=== PATIENT | female | born 1945 | race Caucasian/White ===

== ENCOUNTER 2022-07-24 11:39 | Day surgery (SDC) | payer MEDICARE, OTHER ==
[2022-07-20 12:23] LABS: BASOPHILS # (AUTO) 0.1 X10'3 (0-0.2); BASOPHILS % (AUTO) 0.9 % (0-1); EOSINOPHILS # (AUTO) 0.1 X10'3 (0-0.9); EOSINOPHILS % (AUTO) 1.2 % (0-6); HEMOGLOBIN 13.9 g/dl (12.0-16.0); MEAN CORPUSCULAR VOLUME 92.8 FL (78-98); RED CELL DISTRIBUTION WIDTH 14.1 % (11.5-14.5)
[2022-07-20 12:26] LABS: HEMATOCRIT 40.9 % (35.0-45.0); LYMPHOCYTES # (AUTO) 1.6 X10'3 (1.1-4.8); LYMPHOCYTES % (AUTO) 23.3 % (21-51); MEAN CORPUSCULAR HEMOGLOBIN 31.6 PG (27.0-31.0); MONOCYTES # (AUTO) 0.6 X10'3 (0-0.9); MONOCYTES % (AUTO) 8.2 % (2-12); NEUTROPHILS # (AUTO) 4.7 X10'3 (1.8-7.7); NEUTROPHILS % (AUTO) 66.4 % (42-75); PLATELET COUNT 244 X10'3 (140-440); RED BLOOD COUNT 4.41 X10'6 (4.20-5.60)
[2022-07-20 12:34] LABS: APTT 28 SECONDS (22-32)
[2022-07-20 12:37] LABS: ALBUMIN 4.1 G/DL (3.4-5.0); BLOOD UREA NITROGEN 9 MG/DL (7-18); BUN/CREATININE RATIO 9.8 (6.6-38.0); CALCIUM 9.2 MG/DL (8.5-10.1); CHLORIDE 100 MMOL/L (99-107); CHOL/HDL RATIO 2.1 (0.00-4.99); CHOLESTEROL 212 MG/DL (0-200); CREATININE 0.92 MG/DL (0.40-0.90); GLUCOSE 95 MG/DL (70-104); HDL CHOLESTEROL 101 MG/DL (35-60); LDL CHOLESTEROL 91 MG/DL (50-100); TOTAL CARBON DIOXIDE 27.9 MMOL/L (24-32); TRIGLYCERIDES 68 MG/DL (20-135); eGFR 59 ML/MIN
[2022-07-20 12:53] LABS: ANION GAP 6 (8-16); POTASSIUM 4.2 MMOL/L (3.5-5.1); SODIUM 134 MMOL/L (135-145)
[~2022-07-24] VITALS: Ht 154.9 cm; Wt 56.1 kg
[2022-07-24] VITALS (12 sets, daily range): BP systolic 98–173; BP diastolic 55–97
[~2022-07-24 11:39] MED LIST: ASPI-12 PO; CALC-499 PO; ESTR0.5T PO; MULT-620 PO; OLME40TA70 PO; PROG100C28 PO; SIMV-42 PO
[2022-07-24] MEDS ORDERED: LORazepam 0.5 MG tablet PO PRN (12:00)
[2022-07-24] MEDS ORDERED: diphenhydrAMINE 25mg capsule PO PRN (12:00)
[2022-07-24] MEDS ORDERED: normal saline 1,000 ML IV SCH (12:00)
[2022-07-24] MEDS ORDERED: CENESTIN PO (12:15)
[2022-07-24] MEDS ORDERED: MELO-102 PO (12:16)
[2022-07-24] MEDS ORDERED: AMLO2.5T2 PO (12:19)
[2022-07-24] MEDS ORDERED: NAPR220T67 PO (12:19)
[2022-07-24] MEDS ORDERED: heparin 1,000unit/ml 10ml vial 10 ML ONE (13:54)
[2022-07-24] MEDS ORDERED: fentaNYL/PF 50MCG/1 ML 2ML syringe ONE (13:54)
[2022-07-24] MEDS ORDERED: nitroGLYCERIN-Tridil 50MG/D5W 250 ML IV ONE (13:54)
[2022-07-24] MEDS ORDERED: LIDOcaine 1% (10mg/ml) 2ml vial ONE (13:54)
[2022-07-24] MEDS ORDERED: iohexol 350MG/ML 100ml bottle IV ONE (13:54)
[2022-07-24] MEDS ORDERED: verapamil 2.5 mg/ml inj IV ONE (13:54)
[2022-07-24] MEDS ORDERED: midazolam 1 mg/ML 2ml injection ONE (13:54)
[2022-07-24] MEDS ORDERED: LIDOcaine 1% 30ml preserv. free vial ONE (14:31)
[2022-07-24] MEDS ORDERED: metoprolol tartrate 1mg/ml inj IV ONE (14:44)
--- NOTE | 2022-07-24 17:08 | NUR ---
Notified Dr. Brock that patient's HR in 90-100's. MD aware of elevated HR. No new orders at this time.
[2022-07-31 15:28] LABS: ISTAT HGB ART 11.6 g/dl (12.0-16.0); ISTAT Hct ART 34 %PCV (35-45); ISTAT O2 SATURATION ARTERIAL 91 % (95-98); ISTAT SOURCE ART
== END 2022-07-24 18:00 | disposition home or self-care (01) ==
LOC: SSTAY O 11:39
PROVIDERS: ATTEND Student in an Organized Health Care Education/Training Program
DX: I25.10 Atherosclerotic heart disease of native coronary artery without angina pectoris (principal); E78.5 Hyperlipidemia, unspecified; I10 Essential (primary) hypertension; I07.1 Rheumatic tricuspid insufficiency; Z79.01 Long term (current) use of anticoagulants
CPT/HCPCS: 36415; 80048; 80061; 85025; 85610; 85730; 93005; 93460; 99152; 99153; A6258; C1751; C1769; C1894; J1644; J2250; J3010; J3490; J7030; Q0163; Q9967; 82803; 85014; A6402

== ENCOUNTER 2022-08-13 05:41 | Inpatient (IN) | payer MEDICARE, OTHER ==
[2022-08-09 15:11] LABS: BASOPHILS # (AUTO) 0.1 X10'3 (0-0.2); EOSINOPHILS # (AUTO) 0.2 X10'3 (0-0.9); EOSINOPHILS % (AUTO) 1.9 % (0-6); LYMPHOCYTES # (AUTO) 1.9 X10'3 (1.1-4.8); LYMPHOCYTES % (AUTO) 23.3 % (21-51); MEAN CORPUSCULAR HEMOGLOBIN 31.3 PG (27.0-31.0); MEAN CORPUSCULAR HGB CONC 33.6 g/dL (33.0-36.5); MEAN CORPUSCULAR VOLUME 93.2 FL (78-98); MEAN PLATELET VOLUME 8.9 FL (7.4-10.4); MONOCYTES # (AUTO) 0.6 X10'3 (0-0.9); MONOCYTES % (AUTO) 7.7 % (2-12); NEUTROPHILS # (AUTO) 5.4 X10'3 (1.8-7.7); NEUTROPHILS % (AUTO) 66.1 % (42-75); PRE OP HEMOGLOBIN 14.1 g/dL (12.0-16.0); PRE OP PLATELET COUNT 260 X10'3 (140-440); RED BLOOD COUNT 4.51 X10'6 (4.20-5.60); RED CELL DISTRIBUTION WIDTH 13.9 % (11.5-14.5)
[2022-08-09 15:18] LABS: PRE OP INR 1.1 INR; PRE OP PROTIME 10.9 SECONDS (9.0-12.0)
[2022-08-09 15:20] LABS: ALBUMIN/GLOBULIN RATIO 1.3 (1.1-1.5); ALKALINE PHOSPHATASE 47 IU/L (46-116); BLOOD UREA NITROGEN 14 MG/DL (7-18); BUN/CREATININE RATIO 16.5 (6.6-38.0); CALCIUM 9.7 MG/DL (8.5-10.1); CHLORIDE 97 MMOL/L (99-107); CREATININE 0.85 MG/DL (0.40-0.90); PRE OP ALT 20 U/L (30-65); PRE OP ANION GAP 9 (8-16); PRE OP AST 25 U/L (10-37); PRE OP BILIRUB, TOTAL 0.7 MG/DL (0.0-1.0); PRE OP GLUCOSE 91 MG/DL (70-104); PRE OP POTASSIUM 3.8 MMOL/L (3.4-5.1); PRE OP SODIUM 133 MMOL/L (135-145); TOTAL CARBON DIOXIDE 27.2 MMOL/L (24-32); TOTAL PROTEIN 7.2 G/DL (6.4-8.2); eGFR 65 ML/MIN
[2022-08-09 15:24] LABS: CLARITY,URINE SLIGHTLY CLOUDY (Clear); COLOR,URINE STRAW (Yellow); GLUCOSE, URINE NEGATIVE (Neg); KETONES,URINE NEGATIVE (Neg); LEUKOCYTE ESTERASE ,URINE NEGATIVE (Neg); NITRITES, URINE NEGATIVE (Neg); OCCULT BLOOD,URINE NEGATIVE (Neg); PH,URINE 6.5 (4.8-8.0); PROTEIN,URINE NEGATIVE (Neg); UROBILINOGEN,URINE 0.2 E.U/dL (0.2-1.0)
[2022-08-09 15:27] LABS: UA COLLECTION TYPE CLN CATCH MIDSTREAM
[2022-08-09 15:34] LABS: BACTERIA,URINE 2+ /HPF (Neg); RBC,URINE 0-2 /HPF (0-2); SQUAMOUS EPITHELIAL CELL,UR FEW /LPF (FEW); WBC,URINE 0-4 /HPF (0-4)
[2022-08-09 15:50] LABS: HEMOGLOBIN A1C 5.6 % (4.5-6.2)
[2022-08-13] VITALS (17 sets, daily range): BP systolic 94–159; BP diastolic 42–90
[~2022-08-13] VITALS: Ht 152.4 cm; Wt 61.3 kg
[~2022-08-13 05:41] MED LIST changes: -ASPI-12 PO; +BIO COMPLETE PO; +BUPIVAcaine 0.5% inj/PF 30 ML ONE; -CALC-499 PO; -ESTR0.5T PO; +ESTR1TAB19 PO; +Insulin Reg/NS 100units/100mL 100 ML IV SCH; +MELO-102 PO; +OLME20TA23 PO; -OLME40TA70 PO; +TURM500C4 PO; +ceFAZolin 1000mg inj ONE; +clindamycin-Cleocin 900mg/D5W 50 ML IV ONE; +dextrose 50%-water 50ml dispensing syringe IV PRN; +epiNEPHrine 1 mg/ml inj ONE; +famotidine 20mg tablet PO ONE; +metoprolol tartrate 12.5mg (1/2 tablet) PO ONE; +mupirocin 2% nasal ointment 1gm UD NS ONE; +ringers solution, lacted 1,000 ML IV SCH; +vancomycin/NS 1 GM in NS 250 ML IV ONE
--- NOTE | 2022-08-13 05:55 | NUR ---
PT PREPARED FOR SURGERY, 18 G IV STARTED WITHOUT DIFFICULTY, BLOOD SUGAR CHECKED 85. PT HAD MULTIPLE QUESTIONS ABOUT THE PROCEDURE. PT DID NOT READ THE INFORMATION PACKET BECAUSE SHE SAID "IGNORANCE IS BLISS" PTS LEFT LEG HAS VEIN MAPPING NICHOLE. RIGHT GROIN HAS AN OLD BRUISE, PT STATES IT IS FROM HER CATH PROCEDURE. METOPROLOL AND PEPCID GIVEN. PT PREPPED BY [employer] [facility]. BILATERAL PEDAL PULSES ARE PALPABLE MILD PEDAL EDEMA NOTED. BILATERAL RADIAL PULSES ARE PALPABLE. BLOOD BRACELET IS REAPPLIED.
[2022-08-13 06:41] LABS: ABG BASE EXCESS -1.8 mmol/L (-2.0-2.0); ABG PCO2 (T) 26.6 mmHg (32.0-45.0); ABG PO2 (T) 75.9 mmHg (75.0-100.0); ALLEN'S TEST POSITIVE; FCOHb 0.2 % (0.0-3.9); FMetHb 0.1 % (0.0-1.5); FO2Hb 95.7 % (94-97); TOTAL HEMOGLOBIN 14.3 G/dl (12.0-16.0)
[2022-08-13] MEDS: LORazepam 2 mg/ml vial IV ONE ×2 (07:09→08:02)
[2022-08-13] MEDS ORDERED: midazolam 1 mg/ML 2ml injection ONE (07:13)
[2022-08-13] MEDS ORDERED: fentaNYL /PF 50mcg/ml 5ml ampule ONE (07:14)
[2022-08-13] MEDS ORDERED: papaverine 30 mg/ml 2ml inj. IA ONE (07:30)
[2022-08-13] MEDS ORDERED: isoflurane 100ml inhalation liquid IH ONE (07:56)
[2022-08-13] MEDS ORDERED: DOPamine/D5W 400mg/250ml bag IV ONE (07:56)
[2022-08-13] MEDS ORDERED: nitroGLYCERIN in D5W 50mg/250ml (Tridil) infusion IV ONE (07:56)
[2022-08-13] MEDS ORDERED: DOBUTamine/D5W 500mg/250ml premix IV ONE (07:56)
[2022-08-13] MEDS ORDERED: D5W IV ONE (07:56)
[2022-08-13] MEDS ORDERED: NORepinephrine 8 MG in NS 250 ML BAG (32 mcg/ml) IV ONE (07:56)
[2022-08-13] MEDS ORDERED: protamine sulf. 10mg/ml inj. IV ONE (07:56)
[2022-08-13] MEDS ORDERED: MILRINONE LACTATE IV ONE (07:56)
[2022-08-13 08:31] LABS: ABG BASE EXCESS -4.5 mmol/L (-2.0-2.0); ABG HCO3 18.5 mmol/L (22.0-26.0); ABG OXYGEN SATURATION 99.8 % (94-97); ABG PCO2 28.4 mmHg (32.0-45.0); ABG PO2 373.9 mmHg (75.0-100.0); CL (ABG) 104 mmol/L (99-107); FCOHb 0.3 % (0.0-3.9); FMetHb 0.3 % (0.0-1.5); FO2Hb 99.2 % (94-97); GLUCOSE (ABG) 92 mg/dl (70-104); TOTAL HEMOGLOBIN 13.1 G/dl (12.0-16.0)
[2022-08-13 09:15] LABS: ACT @ 1.70 U 343 SEC (193-297); ACT @ 2.84 U 526 SEC (260-420); BASELINE ACT 153 SEC (101-148); PATIENT WEIGHT 54.0k KG
[2022-08-13] MEDS ORDERED: ipratropium/albuterol 3ml nebule IH PRN (10:15)
[2022-08-13 10:16] LABS: ABG BASE EXCESS VENOUS -2.2 mmol/L (-2.0 - 2.0); ABG PCO2 VENOUS 34.7 mmHg (38.0-51.0); ABG PO2 VENOUS 55.1 mmHg (25.0-35.0); CL (ABG) 102 mmol/L (99-107); FHHb VENOUS 11.1 %; FMetHb VENOUS 0.3 % (0.0 - 0.5); FO2Hb VENOUS 87.6 %; GLUCOSE (ABG) 114 mg/dl (70-104); IONIZED CA (ABG) 0.85 mmol/L (1.10-1.30); K (ABG) 3.6 mmol/L (3.5-5.1); TOTAL HEMOGLOBIN 7.8 G/dl (12.0-16.0)
[2022-08-13 10:23] LABS: ABG BASE EXCESS -2.1 mmol/L (-2.0-2.0); ABG HCO3 20.9 mmol/L (22.0-26.0); ABG OXYGEN SATURATION 99.9 % (94-97); ABG PCO2 28.6 mmHg (32.0-45.0); ABG PO2 484.6 mmHg (75.0-100.0); CL (ABG) 103 mmol/L (99-107); FCOHb 0.5 % (0.0-3.9); FMetHb 0.3 % (0.0-1.5); FO2Hb 99.1 % (94-97); GLUCOSE (ABG) 113 mg/dl (70-104); K (ABG) 3.8 mmol/L (3.5-5.1); TOTAL HEMOGLOBIN 7.8 G/dl (12.0-16.0)
[2022-08-13 10:58] LABS: ABG BASE EXCESS -2.5 mmol/L (-2.0-2.0); ABG HCO3 21.1 mmol/L (22.0-26.0); ABG OXYGEN SATURATION 99.8 % (94-97); ABG PCO2 31.3 mmHg (32.0-45.0); ABG PO2 372.1 mmHg (75.0-100.0); CL (ABG) 105 mmol/L (99-107); FCOHb 0.5 % (0.0-3.9); FMetHb 0.3 % (0.0-1.5); GLUCOSE (ABG) 135 mg/dl (70-104); IONIZED CA (ABG) 0.95 mmol/L (1.10-1.30); K (ABG) 3.9 mmol/L (3.5-5.1); TOTAL HEMOGLOBIN 7.7 G/dl (12.0-16.0)
[2022-08-13 11:19] LABS: ABG BASE EXCESS -4.7 mmol/L (-2.0-2.0); ABG HCO3 24.8 mmol/L (22.0-26.0); ABG OXYGEN SATURATION 99.8 % (94-97); CL (ABG) 105 mmol/L (99-107); FCOHb 0.6 % (0.0-3.9); FO2Hb 99.2 % (94-97); GLUCOSE (ABG) 168 mg/dl (70-104); IONIZED CA (ABG) 1.01 mmol/L (1.10-1.30); K (ABG) 4.2 mmol/L (3.5-5.1); TOTAL HEMOGLOBIN 7.7 G/dl (12.0-16.0)
[2022-08-13 11:35] LABS: ABG BASE EXCESS -2.3 mmol/L (-2.0-2.0); ABG HCO3 24.2 mmol/L (22.0-26.0); ABG OXYGEN SATURATION 99.7 % (94-97); ABG PCO2 50.8 mmHg (32.0-45.0); ABG PO2 406.3 mmHg (75.0-100.0); CL (ABG) 106 mmol/L (99-107); FCOHb 0.9 % (0.0-3.9); FMetHb 0.3 % (0.0-1.5); FO2Hb 98.5 % (94-97); GLUCOSE (ABG) 184 mg/dl (70-104); IONIZED CA (ABG) 0.98 mmol/L (1.10-1.30); K (ABG) 4.3 mmol/L (3.5-5.1); TOTAL HEMOGLOBIN 7.7 G/dl (12.0-16.0)
[2022-08-13] MEDS ORDERED: heparin 10,000 units/1 ML INJ ONE (12:00)
[2022-08-13] MEDS ORDERED: magnesium sulf 1 GM/2 ML ONE (12:00)
[2022-08-13] MEDS ORDERED: LIDOcaine 2% (20 mg/ml) 5ml cardiac syringe ONE (12:00)
[2022-08-13] MEDS ORDERED: potassium Cl 2 mEq/ml inj IV ONE (12:00)
[2022-08-13] MEDS ORDERED: phenylephrine 10mg/ml inj. -priapism dosing ONE ×2 (12:00→15:09)
[2022-08-13] MEDS ORDERED: mannitol 12.5gm/50mL VIAL IV ONE (12:00)
[2022-08-13] MEDS ORDERED: methylPREDNISolone sod succ 1000mg vial ONE (12:00)
[2022-08-13] MEDS ORDERED: albumin (human) 25% 100 ML IV solution IV ONE (12:00)
[2022-08-13] MEDS ORDERED: calcium chloride 100 MG/1 ML inj IV ONE (12:00)
[2022-08-13] MEDS ORDERED: sodium bicarbonate (8.4%) 1 mEq/ml syringe ONE (12:00)
[2022-08-13] MEDS ORDERED: aminocaproic acid 250 MG/1 ML inj. ONE (12:00)
[2022-08-13 12:08] LABS: ABG BASE EXCESS 2.1 mmol/L (-2.0-2.0); ABG HCO3 24.6 mmol/L (22.0-26.0); ABG OXYGEN SATURATION 99.7 % (94-97); ABG PCO2 29.2 mmHg (32.0-45.0); ABG PO2 405.8 mmHg (75.0-100.0); CL (ABG) 106 mmol/L (99-107); FCOHb 0.8 % (0.0-3.9); FMetHb 0.3 % (0.0-1.5); FO2Hb 98.6 % (94-97); GLUCOSE (ABG) 196 mg/dl (70-104); IONIZED CA (ABG) 0.91 mmol/L (1.10-1.30); K (ABG) 4.5 mmol/L (3.5-5.1); TOTAL HEMOGLOBIN 6.9 G/dl (12.0-16.0)
[2022-08-13] MEDS: ROPIVAcaine 0.2%/PF PUMP 545 ML MEDSTERN SCH ×2 (12:25→12:30)
[2022-08-13 12:32] LABS: ABG BASE EXCESS 0.5 mmol/L (-2.0-2.0); ABG HCO3 23.6 mmol/L (22.0-26.0); ABG OXYGEN SATURATION 99.8 % (94-97); ABG PCO2 31.1 mmHg (32.0-45.0); ABG PO2 307.6 mmHg (75.0-100.0); CL (ABG) 108 mmol/L (99-107); FMetHb 0.3 % (0.0-1.5); FO2Hb 98.5 % (94-97); GLUCOSE (ABG) 188 mg/dl (70-104); IONIZED CA (ABG) 0.92 mmol/L (1.10-1.30); K (ABG) 4.1 mmol/L (3.5-5.1); TOTAL HEMOGLOBIN 7.1 G/dl (12.0-16.0)
[2022-08-13] MEDS ORDERED: fentaNYL/PF 50MCG/1 ML 2ML syringe ONE (12:49)
[2022-08-13 13:25] LABS: ABG BASE EXCESS VENOUS -3.9 mmol/L (-2.0 - 2.0); ABG HCO3 VENOUS 21.9 mmol/L (21.0-28.0); ABG PCO2 VENOUS 43.2 mmHg (38.0-51.0); ABG PO2 VENOUS 62.9 mmHg (25.0-35.0); CL (ABG) 111 mmol/L (99-107); FCOHb VENOUS 0.4 % (0.0- 3.9); FHHb VENOUS 10.6 %; FMetHb VENOUS 0.3 % (0.0 - 0.5); FO2Hb VENOUS 88.7 %; GLUCOSE (ABG) 100 mg/dl (70-104); IONIZED CA (ABG) 1.18 mmol/L (1.10-1.30); K (ABG) 3.4 mmol/L (3.5-5.1); TOTAL HEMOGLOBIN 9.1 G/dl (12.0-16.0)
[2022-08-13 13:28] LABS: ACTIVATED CLOTTING TIME 116 SEC (101-148)
[2022-08-13 13:46] LABS: BASOPHILS % (AUTO) 0.3 % (0-1); EOSINOPHILS % (AUTO) 0.3 % (0-6); HEMATOCRIT 28.3 % (35.0-45.0); HEMOGLOBIN 9.5 g/dl (12.0-16.0); LYMPHOCYTES # (AUTO) 1.2 X10'3 (1.1-4.8); LYMPHOCYTES % (AUTO) 11.2 % (21-51); MEAN CORPUSCULAR HEMOGLOBIN 31.4 PG (27.0-31.0); MEAN CORPUSCULAR HGB CONC 33.6 g/dL (33.0-36.5); MEAN CORPUSCULAR VOLUME 93.6 FL (78-98); MEAN PLATELET VOLUME 8.2 FL (7.4-10.4); MONOCYTES # (AUTO) 0.4 X10'3 (0-0.9); MONOCYTES % (AUTO) 3.9 % (2-12); NEUTROPHILS # (AUTO) 9.2 X10'3 (1.8-7.7); NEUTROPHILS % (AUTO) 84.3 % (42-75); PLATELET COUNT 87 X10'3 (140-440); RED BLOOD COUNT 3.02 X10'6 (4.20-5.60); RED CELL DISTRIBUTION WIDTH 13.6 % (11.5-14.5); WHITE BLOOD COUNT 10.9 X10'3 (4.5-11.0)
[2022-08-13] MEDS ORDERED: Insulin Reg/NS 100units/100mL 100 ML IV SCH (14:10)
[2022-08-13] MEDS ORDERED: HYDROcodone/acetaminophen 10/325mg tab PO PRN (14:10)
[2022-08-13] MEDS ORDERED: niCARDipine-NS 40mg/200ml IVPB 200 ML IV PRN (14:10)
[2022-08-13] MEDS ORDERED: potassium Cl 40MEQ/270ML bag 250 ML IV PRN (14:10)
[2022-08-13] MEDS ORDERED: ondansetron/PF 4mg/2ml inj IV PRN (14:10)
[2022-08-13] MEDS ORDERED: DOBUTamine-DoBUTrex 500mg/D5W 250 ML IV PRN ×2 (14:10→14:47)
[2022-08-13] MEDS ORDERED: sodium chloride 0.45% 1,000 ML IV SCH (14:10)
[2022-08-13] MEDS ORDERED: potassium Cl 20 mEq SR tablet PO PRN (14:10)
[2022-08-13] MEDS ORDERED: normal saline 250ml IV soln 250 ML IV PRN (14:10)
[2022-08-13] MEDS ORDERED: dextrose 50%-water 50ml dispensing syringe IV PRN (14:10)
[2022-08-13] MEDS ORDERED: Neutra Phos packet PO PRN (14:10)
[2022-08-13] MEDS ORDERED: DOPamine 400mg/D5W 250ml 250 ML IV PRN ×2 (14:10→15:04)
[2022-08-13] MEDS ORDERED: milrinone (Primacor) 20mg/D5W 100 ML IV PRN (14:10)
[2022-08-13] MEDS ORDERED: bisacodyl 10mg suppository rectal RC PRN (14:10)
[2022-08-13] MEDS ORDERED: magnesium 4gm in 100ml NS 100 ML IV PRN (14:10)
[2022-08-13] MEDS ORDERED: mineral oil 133ml enema RC PRN (14:10)
[2022-08-13] MEDS ORDERED: morphine 2 MG/ML inj. syringe IV PRN (14:10)
[2022-08-13] MEDS ORDERED: morphine 4 MG/ML inj SYRINge IV PRN (14:10)
[2022-08-13] MEDS ORDERED: nitroGLYCERIN-Tridil 50MG/D5W 250 ML IV PRN (14:10)
[2022-08-13] MEDS ORDERED: magnesium citrate 296ml oral solution PO PRN (14:10)
[2022-08-13] MEDS ORDERED: metoclopramide 5 mg/ml inj IV PRN (14:10)
[2022-08-13] MEDS ORDERED: potassium Cl 40MEQ/1/2NS 520ml 520 ML IV PRN (14:10)
[2022-08-13] MEDS ORDERED: sodium phosphate inj. 15 MMOL in dextrose 5%-water 250 ML IV PRN (14:10)
[2022-08-13] MEDS ORDERED: sodium phosphate inj. 30 MMOL in dextrose 5%-water 250 ML IV PRN (14:10)
[2022-08-13] MEDS ORDERED: acetaminophen 325mg tablet PO PRN ×2 (14:10)
[2022-08-13] MEDS ORDERED: insulin glargine (Lantus) pen - multi-dose SQ PRN (14:10)
[2022-08-13] MEDS ORDERED: magnesium hydroxide 30ml (MOM) UD suspension PO PRN (14:10)
[2022-08-13] MEDS ORDERED: potassium CL 10mEq/100ml bag 100 ML IV PRN (14:10)
[2022-08-13 14:37] LABS: APTT 37 SECONDS (22-32)
--- NOTE | 2022-08-13 15:00 | NUR ---
Received to room , accompanied by MDs and surgical crew. Placed on ventilator, to telemetry monitor, arterial line and PA line pressure zeroed & monitored. Chest tubes to suction at 20 cm. Dubon cath to gravity drainage. Dressings are dry and intact. See assessment record. All vasoactive drugs are infusing via central line.
[2022-08-13 15:03] LABS: ABG BASE EXCESS -4.4 mmol/L (-2.0-2.0); ABG HCO3 20.6 mmol/L (22.0-26.0); ABG OXYGEN SATURATION 98.7 % (94-97); ABG PCO2 (T) 34.7 mmHg (32.0-45.0); ABG PO2 (T) 184.1 mmHg (75.0-100.0); FCOHb 0.2 % (0.0-3.9); FMetHb 0.6 % (0.0-1.5); FO2Hb 97.9 % (94-97); PATIENT TEMPERATURE 35.3; PEEP 5 cm H2O; RESPIRATORY RATE 12 b/min; TIDAL VOLUME 450 mL; TOTAL HEMOGLOBIN 10.6 G/dl (12.0-16.0)
[2022-08-13] MEDS ORDERED: propofol inj 20 ML IV ONE (15:09)
[2022-08-13] MEDS ORDERED: epiNEPHrine 1 mg/ml inj ONE (15:09)
[2022-08-13] MEDS ORDERED: rocuronium 10mg/ml inj IV ONE (15:09)
[2022-08-13] MEDS ORDERED: acetaminophen 1,000mg/100ml IV 100 ML IV ONE (15:09)
[2022-08-13] MEDS ORDERED: LIDOcaine 2% (20mg/ml) 5ml vial ONE (15:09)
[2022-08-13] MEDS ORDERED: albumin (Human) 5% 250ml 750 ML IV ONE (15:09)
[2022-08-13 15:11] LABS: ALANINE AMINOTRANSFERASE 19 U/L (12-78); ALBUMIN 3.1 G/DL (3.4-5.0); ALBUMIN/GLOBULIN RATIO 2.1 (1.1-1.5); ALKALINE PHOSPHATASE 22 IU/L (46-116); ANION GAP 10 (8-16); ASPARTATE AMINO TRANSFERASE 47 U/L (10-37); BILIRUBIN,TOTAL 0.8 MG/DL (0.1-1.0); BLOOD UREA NITROGEN 12 MG/DL (7-18); BUN/CREATININE RATIO 13.2 (6.6-38.0); CALCIUM 6.6 MG/DL (8.5-10.1); CHLORIDE 109 MMOL/L (99-107); CREATININE 0.91 MG/DL (0.40-0.90); GLUCOSE 74 MG/DL (70-104); MAGNESIUM 2.1 MG/DL (1.5-2.4); PHOSPHORUS 2.8 MG/DL (2.3-4.5); POTASSIUM 3.4 MMOL/L (3.5-5.1); SODIUM 141 MMOL/L (135-145); TOTAL CARBON DIOXIDE 22.4 MMOL/L (24-32); TOTAL PROTEIN 4.6 G/DL (6.4-8.2); eGFR 60 ML/MIN
[2022-08-13] MEDS: magnesium 2GM in 50ml NS 50 ML IV PRN ×2 (15:42→20:58)
[2022-08-13] MEDS: potassium Cl 20mEq/100mL bag 100 ML IV PRN ×4 (15:42→18:47)
[2022-08-13] MEDS: ceFAZolin/D5W- 1GM premix 50 ML IV SCH (16:20)
[2022-08-13] MEDS: albumin (Human) 5% 250ml 250 ML IV PRN ×2 (16:51→17:43)
--- NOTE | 2022-08-13 18:18 | NUR ---
Problems reprioritized. Patient report given, questions answered & plan of care reviewed with Alfredo GARCIAS.
--- NOTE | 2022-08-13 18:18 | NUR ---
Patient in room CICU 2008. I have received report from Alka and had the opportunity to ask questions and assume patient care.
--- NOTE | 2022-08-13 18:23 | NUR ---
MD at bedside. Reviewed plan of care for the night. Reviewed current hemodynamics and drips. Will extubate if meets parameters. If pt continues to be a little hypotensive and her SVR is low he would like some vasopressin started. Would like to turn down primacor now and wean off if able given her high CI and borderline hypotension.
[2022-08-13 20:27] LABS: BASOPHILS % (AUTO) 0.1 % (0-1); EOSINOPHILS % (AUTO) 0.1 % (0-6); HEMATOCRIT 24.7 % (35.0-45.0); HEMOGLOBIN 8.3 g/dl (12.0-16.0); LYMPHOCYTES # (AUTO) 0.5 X10'3 (1.1-4.8); MEAN CORPUSCULAR HEMOGLOBIN 31.1 PG (27.0-31.0); MEAN CORPUSCULAR HGB CONC 33.6 g/dL (33.0-36.5); MEAN CORPUSCULAR VOLUME 92.7 FL (78-98); MEAN PLATELET VOLUME 8.4 FL (7.4-10.4); MONOCYTES # (AUTO) 0.5 X10'3 (0-0.9); NEUTROPHILS # (AUTO) 8.7 X10'3 (1.8-7.7); NEUTROPHILS % (AUTO) 89.8 % (42-75); PLATELET COUNT 77 X10'3 (140-440); RED BLOOD COUNT 2.67 X10'6 (4.20-5.60); RED CELL DISTRIBUTION WIDTH 13.9 % (11.5-14.5); WHITE BLOOD COUNT 9.6 X10'3 (4.5-11.0)
[2022-08-13] MEDS: sennosides/docusate sodium tablet PO SCH (20:30)
[2022-08-13] MEDS: vancomycin/NS 1 GM ADD-VANTAGE 250 ML IV SCH (20:30)
[2022-08-13] MEDS: mupirocin 2% ointment 22GM NS SCH (20:30)
[2022-08-13] MEDS: atorvastatin 10mg tablet PO SCH (20:33)
[2022-08-13] MEDS: gabapentin 300mg capsule PO SCH (20:33)
[2022-08-13 20:39] LABS: ALBUMIN 3.8 G/DL (3.4-5.0); ANION GAP 11 (8-16); BLOOD UREA NITROGEN 12 MG/DL (7-18); BUN/CREATININE RATIO 12.9 (6.6-38.0); CALCIUM 7.1 MG/DL (8.5-10.1); CHLORIDE 110 MMOL/L (99-107); CREATININE 0.93 MG/DL (0.40-0.90); GLUCOSE 117 MG/DL (70-104); MAGNESIUM 2.4 MG/DL (1.5-2.4); PHOSPHORUS 1.4 MG/DL (2.3-4.5); POTASSIUM 4.5 MMOL/L (3.5-5.1); SODIUM 140 MMOL/L (135-145); TOTAL CARBON DIOXIDE 19.3 MMOL/L (24-32); eGFR 58 ML/MIN
[2022-08-13 20:51] LABS: ABG BASE EXCESS -7.3 mmol/L (-2.0-2.0); ABG HCO3 16.6 mmol/L (22.0-26.0); ABG OXYGEN SATURATION 97.2 % (94-97); ABG PO2 (T) 109.3 mmHg (75.0-100.0); FCOHb 0.3 % (0.0-3.9); FMetHb 0.6 % (0.0-1.5); FO2Hb 96.3 % (94-97); PATIENT TEMPERATURE 37.6; TOTAL HEMOGLOBIN 9.1 G/dl (12.0-16.0)
--- NOTE | 2022-08-13 22:25 | NUR ---
MD called to check on pt. He was told she was still intubated because she was very sleepy. Her hemodynamics have been good for hours now off all vasoactive drips. Bleeding minimal. Some pain which has been resolved with morphine twice, pain pumps still going at 10ml/hr each (what they were at upon my arrival). He was fine leaving her intubated untill fully awake. Upon returning to the room the RT was with the pt who was wide awake. Pt had already passed ABG parameters, passed extubation parameters and extubated at 2205 to 3LNC with no complications. Pt still a bit groggy but aware of situation and place. Re-orienting as needed. Hemodynamics done after extubation which were good.
[2022-08-14] VITALS (24 sets, daily range): BP systolic 95–139; BP diastolic 45–67
[2022-08-14] MEDS: ceFAZolin/D5W- 1GM premix 50 ML IV SCH ×4 (00:30→23:09)
[2022-08-14 02:40] LABS: BASOPHILS % (AUTO) 0.1 % (0-1); EOSINOPHILS % (AUTO) 0 % (0-6); HEMATOCRIT 26.1 % (35.0-45.0); HEMOGLOBIN 8.6 g/dl (12.0-16.0); LYMPHOCYTES # (AUTO) 0.8 X10'3 (1.1-4.8); LYMPHOCYTES % (AUTO) 6.1 % (21-51); MEAN CORPUSCULAR HGB CONC 33.1 g/dL (33.0-36.5); MEAN CORPUSCULAR VOLUME 93.7 FL (78-98); MONOCYTES # (AUTO) 0.7 X10'3 (0-0.9); MONOCYTES % (AUTO) 5.8 % (2-12); NEUTROPHILS # (AUTO) 10.9 X10'3 (1.8-7.7); PLATELET COUNT 81 X10'3 (140-440); RED BLOOD COUNT 2.79 X10'6 (4.20-5.60); RED CELL DISTRIBUTION WIDTH 13.7 % (11.5-14.5); WHITE BLOOD COUNT 12.5 X10'3 (4.5-11.0)
[2022-08-14 02:51] LABS: APTT 37 SECONDS (22-32)
[2022-08-14 03:01] LABS: ALANINE AMINOTRANSFERASE 27 U/L (12-78); ALBUMIN 3.8 G/DL (3.4-5.0); ALBUMIN/GLOBULIN RATIO 2.9 (1.1-1.5); ALKALINE PHOSPHATASE 19 IU/L (46-116); ANION GAP 11 (8-16); ASPARTATE AMINO TRANSFERASE 55 U/L (10-37); BILIRUBIN,TOTAL 0.6 MG/DL (0.1-1.0); BLOOD UREA NITROGEN 11 MG/DL (7-18); BUN/CREATININE RATIO 14.3 (6.6-38.0); CHLORIDE 109 MMOL/L (99-107); CREATININE 0.77 MG/DL (0.40-0.90); GLUCOSE 129 MG/DL (70-104); MAGNESIUM 2.8 MG/DL (1.5-2.4); PHOSPHORUS 3.6 MG/DL (2.3-4.5); SODIUM 140 MMOL/L (135-145); TOTAL CARBON DIOXIDE 20.5 MMOL/L (24-32); TOTAL PROTEIN 5.1 G/DL (6.4-8.2); eGFR 72 ML/MIN
[2022-08-14] MEDS: potassium Cl 20mEq/100mL bag 100 ML IV PRN ×2 (03:22→05:05)
--- NOTE | 2022-08-14 06:40 | NUR ---
Patient in room CICU 2008. I have received report from Alfredo GARCIAS and had the opportunity to ask questions and assume patient care.
[2022-08-14 06:54] LABS: ABG PCO2 78.1 mmHg (32.0-45.0)
[2022-08-14] MEDS ORDERED: MELOXICAM 15 MG TABLET PO SCH (08:00)
[2022-08-14] MEDS ORDERED: metoprolol tartrate 12.5mg (1/2 tablet) PO SCH (08:00)
[2022-08-14] MEDS ORDERED: aspirin 81mg tab.chew PO SCH (08:30)
[2022-08-14] MEDS: sennosides/docusate sodium tablet PO SCH ×2 (09:36→20:06)
[2022-08-14] MEDS: furosemide 40mg/4ml inj IV SCH ×3 (09:36→23:09)
[2022-08-14] MEDS: gabapentin 300mg capsule PO SCH ×3 (09:37→20:06)
[2022-08-14] MEDS: multivitamins, therapeutics tablet PO SCH (09:37)
[2022-08-14] MEDS: mupirocin 2% ointment 22GM NS SCH ×2 (09:38→20:07)
[2022-08-14] MEDS: progesterone, micronized 100mg capsule PO SCH (09:39)
[2022-08-14] MEDS: estradiol 1mg tablet PO SCH (09:39)
[2022-08-14] MEDS: vancomycin/NS 1 GM ADD-VANTAGE 250 ML IV SCH ×2 (09:39→20:07)
--- NOTE | 2022-08-14 12:01 | NUR ---
Nutrition consult: Pt POD #1 s/p CABG x 1, just extubated at 22:05 yesterday per EMR. Pt would benefit from nutrition therapy education once appropriate. Will continue to follow. Addendum: 08/14/22 at [address] Amended: Links added.
[2022-08-14] MEDS: lactobacillus rhamnosus 10,000 MMU CELLS/CAPSULE PO SCH ×2 (12:31→18:04)
[2022-08-14] MEDS: folic acid/vitamin B complex w/vitamin C 0.8mg tablet PO SCH (12:31)
[2022-08-14] MEDS: potassium Cl 20 mEq SR tablet PO SCH (18:04)
--- NOTE | 2022-08-14 18:13 | NUR ---
Problems reprioritized. Patient report given, questions answered & plan of care reviewed with Pennie GARCIAS.
[2022-08-14] MEDS: carVEDilol 3.125mg tablet PO SCH (20:06)
[2022-08-14] MEDS: atorvastatin 10mg tablet PO SCH (20:06)
[2022-08-14] MEDS: ferrous sulfate ER tablet 140 MG TABLET.ER PO SCH (20:07)
[2022-08-15] VITALS (23 sets, daily range): BP systolic 101–154; BP diastolic 36–74
[2022-08-15 02:42] LABS: BASOPHILS % (AUTO) 0.1 % (0-1); EOSINOPHILS % (AUTO) 0 % (0-6); HEMATOCRIT 27.7 % (35.0-45.0); HEMOGLOBIN 9.1 g/dl (12.0-16.0); LYMPHOCYTES # (AUTO) 1.2 X10'3 (1.1-4.8); LYMPHOCYTES % (AUTO) 7.6 % (21-51); MEAN CORPUSCULAR HEMOGLOBIN 30.7 PG (27.0-31.0); MEAN CORPUSCULAR HGB CONC 32.8 g/dL (33.0-36.5); MEAN CORPUSCULAR VOLUME 93.5 FL (78-98); MEAN PLATELET VOLUME 10.1 FL (7.4-10.4); MONOCYTES # (AUTO) 1.1 X10'3 (0-0.9); MONOCYTES % (AUTO) 6.9 % (2-12); NEUTROPHILS # (AUTO) 13.9 X10'3 (1.8-7.7); NEUTROPHILS % (AUTO) 85.4 % (42-75); PLATELET COUNT 80 X10'3 (140-440); RED BLOOD COUNT 2.96 X10'6 (4.20-5.60); RED CELL DISTRIBUTION WIDTH 14.2 % (11.5-14.5); WHITE BLOOD COUNT 16.3 X10'3 (4.5-11.0)
[2022-08-15 03:10] LABS: ALBUMIN 3.2 G/DL (3.4-5.0); ANION GAP 6 (8-16); BLOOD UREA NITROGEN 13 MG/DL (7-18); BUN/CREATININE RATIO 17.8 (6.6-38.0); CALCIUM 6.9 MG/DL (8.5-10.1); CHLORIDE 103 MMOL/L (99-107); CREATININE 0.73 MG/DL (0.40-0.90); GLUCOSE 128 MG/DL (70-104); MAGNESIUM 2.3 MG/DL (1.5-2.4); PHOSPHORUS 2.7 MG/DL (2.3-4.5); POTASSIUM 4.9 MMOL/L (3.5-5.1); SODIUM 132 MMOL/L (135-145); TOTAL CARBON DIOXIDE 23.1 MMOL/L (24-32); eGFR 77 ML/MIN
--- NOTE | 2022-08-15 06:46 | NUR ---
Problems reprioritized. Patient report given, questions answered & plan of care reviewed with Emilee GARCIAS.
[2022-08-15] MEDS: folic acid/vitamin B complex w/vitamin C 0.8mg tablet PO SCH (08:22)
[2022-08-15] MEDS: sennosides/docusate sodium tablet PO SCH ×2 (08:22→20:00)
[2022-08-15] MEDS: furosemide 40mg/4ml inj IV SCH ×3 (08:22→23:04)
[2022-08-15] MEDS: lactobacillus rhamnosus 10,000 MMU CELLS/CAPSULE PO SCH ×3 (08:22→17:48)
[2022-08-15] MEDS: gabapentin 300mg capsule PO SCH ×2 (08:23→13:18)
[2022-08-15] MEDS: pantoprazole 40mg Tablet.DR PO SCH (08:23)
[2022-08-15] MEDS: ferrous sulfate ER tablet 140 MG TABLET.ER PO SCH (08:23)
[2022-08-15] MEDS: potassium Cl 20 mEq SR tablet PO SCH (08:23)
[2022-08-15] MEDS: multivitamins, therapeutics tablet PO SCH (08:23)
[2022-08-15] MEDS: estradiol 1mg tablet PO SCH (08:24)
[2022-08-15] MEDS: progesterone, micronized 100mg capsule PO SCH (08:24)
[2022-08-15] MEDS: MELOXICAM 7.5 MG TABLET PO SCH (08:24)
[2022-08-15] MEDS: mupirocin 2% ointment 22GM NS SCH (08:24)
[2022-08-15] MEDS: carVEDilol 3.125mg tablet PO SCH (08:24)
[2022-08-15] MEDS ORDERED: potassium Cl 40MEQ/1/2NS 520ml 520 ML IV PRN (09:10)
[2022-08-15] MEDS ORDERED: potassium Cl 20 mEq SR tablet PO PRN ×2 (09:10)
[2022-08-15] MEDS ORDERED: potassium Cl 20mEq/100mL bag 100 ML IV PRN (09:10)
[2022-08-15] MEDS ORDERED: potassium CL 10mEq/100ml bag 100 ML IV PRN (09:10)
[2022-08-15] MEDS ORDERED: potassium Cl 40MEQ/270ML bag 250 ML IV PRN (09:10)
[2022-08-15] MEDS ORDERED: magnesium 4gm in 100ml NS 100 ML IV PRN (09:10)
[2022-08-15] MEDS ORDERED: magnesium 2GM in 50ml NS 50 ML IV PRN (09:10)
--- NOTE | 2022-08-15 10:12 | NUR ---
Dr. Rangel by to round on patient, removed chest tube #2, chest tube #1 remains he also d/c'd central line
[2022-08-15] MEDS: ROPIVAcaine 0.2%/PF PUMP 545 ML MEDSTERN SCH ×2 (13:03→13:04)
--- NOTE | 2022-08-15 14:41 | NUR ---
Nutrition consult: Pt POD #2 s/p CABG x 1 per EMR. Pt/SO seen by RD at bedside for written/verbal high protein/HH diet eds w/ RD contact information provided. Pt 0-25% initial heart healthy meals reports no appetite post-op w/ no food preferences outside liking chocolate during RD visit. Pt is agreeable to Ensure Plus High Protein TIDWM for protein/kcal needs; PA notified pending verification in EMR. RD encouraged pt to make food preferences known regardless of heart healthy diet restriction in interim given poor intake/no appetite post-op. RD encouraged pt/SO to contact dietitian's office if further nutrition questions/concerns. Addendum: 08/15/22 at [address] Amended: Links added.
[2022-08-15] MEDS: atorvastatin 10mg tablet PO SCH (20:15)
[2022-08-15] MEDS: carvedilol 6.25mg tablet PO SCH (20:15)
[2022-08-15] MEDS: FERROUS SULFATE 142 MG TABLET.ER (45mg elemental) PO SCH (20:15)
[2022-08-15] MEDS: magnesium Cl slow-release 64mg tablet PO SCH (20:15)
[2022-08-16 02:00] VITALS: BP 119/62
--- NOTE | 2022-08-16 06:46 | NUR ---
Patient in room PCU 3021. I have received report from Emilee GARCIAS and had the opportunity to ask questions and assume patient care. Pt is laying semi fowlers in bed watching TV. Pt on 2l NC. No s/s of distress. Pt has CT to R side. CT to wall suction. Atrium upright and intact, no s/s of leak, approiate suction applied. Pt denies c/o pain with CT. BLL, call light within reach, frequently used items in reach, frequent rounding, oil and gas superintendent socks on, will continue to monitor.
[2022-08-16 07:06] LABS: BASOPHILS # (AUTO) 0.1 X10'3 (0-0.2); BASOPHILS % (AUTO) 0.4 % (0-1); EOSINOPHILS # (AUTO) 0.2 X10'3 (0-0.9); EOSINOPHILS % (AUTO) 1.4 % (0-6); HEMATOCRIT 30.9 % (35.0-45.0); HEMOGLOBIN 10.5 g/dl (12.0-16.0); LYMPHOCYTES # (AUTO) 2.3 X10'3 (1.1-4.8); LYMPHOCYTES % (AUTO) 15.5 % (21-51); MEAN CORPUSCULAR HEMOGLOBIN 31.6 PG (27.0-31.0); MEAN CORPUSCULAR HGB CONC 33.9 g/dL (33.0-36.5); MEAN CORPUSCULAR VOLUME 93.1 FL (78-98); MONOCYTES # (AUTO) 1.1 X10'3 (0-0.9); MONOCYTES % (AUTO) 7.2 % (2-12); NEUTROPHILS # (AUTO) 11.2 X10'3 (1.8-7.7); NEUTROPHILS % (AUTO) 75.5 % (42-75); PLATELET COUNT 92 X10'3 (140-440); RED BLOOD COUNT 3.32 X10'6 (4.20-5.60); RED CELL DISTRIBUTION WIDTH 14.1 % (11.5-14.5); WHITE BLOOD COUNT 14.8 X10'3 (4.5-11.0)
[2022-08-16 07:17] LABS: ANION GAP 6 (8-16); BLOOD UREA NITROGEN 10 MG/DL (7-18); BUN/CREATININE RATIO 14.5 (6.6-38.0); CALCIUM 6.9 MG/DL (8.5-10.1); CHLORIDE 99 MMOL/L (99-107); CREATININE 0.69 MG/DL (0.40-0.90); GLUCOSE 109 MG/DL (70-104); POTASSIUM 4.2 MMOL/L (3.5-5.1); SODIUM 130 MMOL/L (135-145); TOTAL CARBON DIOXIDE 24.9 MMOL/L (24-32); eGFR 82 ML/MIN
[2022-08-16] MEDS: LACTOSE-REDUCED FOOD 237ML LIQUID PO SCH ×3 (08:00→18:00)
[2022-08-16] MEDS: folic acid/vitamin B complex w/vitamin C 0.8mg tablet PO SCH (08:34)
[2022-08-16] MEDS: magnesium Cl slow-release 64mg tablet PO SCH ×2 (08:34→21:30)
[2022-08-16] MEDS: FERROUS SULFATE 142 MG TABLET.ER (45mg elemental) PO SCH ×2 (08:35→20:00)
[2022-08-16] MEDS: carvedilol 6.25mg tablet PO SCH ×2 (08:35→21:37)
[2022-08-16] MEDS: multivitamins, therapeutics tablet PO SCH (08:35)
[2022-08-16] MEDS: MELOXICAM 7.5 MG TABLET PO SCH (08:35)
[2022-08-16] MEDS: pantoprazole 40mg Tablet.DR PO SCH (08:35)
[2022-08-16] MEDS: sennosides/docusate sodium tablet PO SCH ×2 (08:36→21:30)
[2022-08-16] MEDS: progesterone, micronized 100mg capsule PO SCH (08:36)
[2022-08-16] MEDS: lactobacillus rhamnosus 10,000 MMU CELLS/CAPSULE PO SCH ×3 (08:36→17:30)
[2022-08-16] MEDS: estradiol 1mg tablet PO SCH (08:36)
[2022-08-16] MEDS: furosemide 40mg/4ml inj IV SCH (08:37)
[2022-08-16 11:30] VITALS: BP 139/78
[2022-08-16] MEDS ORDERED: carvedilol 6.25mg tablet PO ONE (16:00)
--- NOTE | 2022-08-16 19:05 | NUR ---
Problems reprioritized. Patient report given, questions answered & plan of care reviewed with Tello GARCIAS.
[2022-08-16] MEDS: enoxaparin 30mg/0.3ml syringe SUBCUT SCH (21:29)
[2022-08-16] MEDS: atorvastatin 10mg tablet PO SCH (21:30)
[2022-08-16] MEDS: furosemide 20MG tablet PO SCH (21:30)
[2022-08-16] MEDS: hyDRALAzine 10mg tablet PO SCH (21:34)
[2022-08-16 22:00] VITALS: BP 162/90
[2022-08-17] MEDS: hyDRALAzine 10mg tablet PO SCH (02:00)
[2022-08-17 06:00] VITALS: BP 170/80
[2022-08-17 07:06] LABS: BASOPHILS % (AUTO) 0.3 % (0-1); EOSINOPHILS # (AUTO) 0.3 X10'3 (0-0.9); EOSINOPHILS % (AUTO) 2.3 % (0-6); HEMATOCRIT 33.8 % (35.0-45.0); HEMOGLOBIN 11.2 g/dl (12.0-16.0); LYMPHOCYTES # (AUTO) 1.9 X10'3 (1.1-4.8); LYMPHOCYTES % (AUTO) 13.8 % (21-51); MEAN CORPUSCULAR VOLUME 93.8 FL (78-98); MEAN PLATELET VOLUME 9.7 FL (7.4-10.4); MONOCYTES # (AUTO) 1.2 X10'3 (0-0.9); MONOCYTES % (AUTO) 8.9 % (2-12); NEUTROPHILS # (AUTO) 10.5 X10'3 (1.8-7.7); NEUTROPHILS % (AUTO) 74.7 % (42-75); PLATELET COUNT 110 X10'3 (140-440); RED CELL DISTRIBUTION WIDTH 13.6 % (11.5-14.5)
[2022-08-17 07:22] LABS: ANION GAP 7 (8-16); BLOOD UREA NITROGEN 8 MG/DL (7-18); BUN/CREATININE RATIO 13.8 (6.6-38.0); CALCIUM 7.1 MG/DL (8.5-10.1); CHLORIDE 92 MMOL/L (99-107); CREATININE 0.58 MG/DL (0.40-0.90); GLUCOSE 113 MG/DL (70-104); POTASSIUM 3.5 MMOL/L (3.5-5.1); SODIUM 124 MMOL/L (135-145); TOTAL CARBON DIOXIDE 24.9 MMOL/L (24-32); eGFR > 90 ML/MIN
[2022-08-17] MEDS: LACTOSE-REDUCED FOOD 237ML LIQUID PO SCH ×3 (08:00→18:00)
[2022-08-17] MEDS: progesterone, micronized 100mg capsule PO SCH (08:40)
[2022-08-17] MEDS: magnesium Cl slow-release 64mg tablet PO SCH ×2 (08:40→19:38)
[2022-08-17] MEDS: multivitamins, therapeutics tablet PO SCH (08:40)
[2022-08-17] MEDS: folic acid/vitamin B complex w/vitamin C 0.8mg tablet PO SCH (08:40)
[2022-08-17] MEDS: furosemide 20MG tablet PO SCH ×2 (08:40→19:39)
[2022-08-17] MEDS: estradiol 1mg tablet PO SCH (08:40)
[2022-08-17] MEDS: carvedilol 6.25mg tablet PO SCH ×2 (08:41→19:39)
[2022-08-17] MEDS: FERROUS SULFATE 142 MG TABLET.ER (45mg elemental) PO SCH ×2 (08:41→19:38)
[2022-08-17] MEDS: pantoprazole 40mg Tablet.DR PO SCH (08:41)
[2022-08-17] MEDS: lactobacillus rhamnosus 10,000 MMU CELLS/CAPSULE PO SCH ×3 (08:42→17:56)
[2022-08-17] MEDS: HYDROcodone/acetaminophen 10/325mg tab PO PRN ×3 (08:42→19:36)
[2022-08-17] MEDS: sennosides/docusate sodium tablet PO SCH ×2 (08:42→19:38)
[2022-08-17] MEDS: MELOXICAM 7.5 MG TABLET PO SCH (08:42)
[2022-08-17] MEDS ORDERED: hydrALAZINE 20mg/ml inj. IV PRN (08:55)
[2022-08-17] MEDS: losartan 50mg tablet PO SCH (09:15)
[2022-08-17] MEDS ORDERED: morphine 4 MG/ML inj SYRINge ONE (09:41)
[2022-08-17] MEDS ORDERED: ketorolac tromethamine 15mg/ml inj. IM SCH (10:10)
[2022-08-17] MEDS ORDERED: pantoprazole 40mg Tablet.DR PO SCH (10:15)
[2022-08-17] MEDS ORDERED: ASPI-1071 PO ×2 (10:34)
[2022-08-17] MEDS ORDERED: HYDR-3972 PO (10:34)
[2022-08-17] MEDS ORDERED: CLOP75TA34 PO (10:34)
[2022-08-17] MEDS ORDERED: CARV6.253 PO (10:34)
[2022-08-17 11:00] VITALS: BP 145/80
[2022-08-17] MEDS: ROPIVAcaine 0.2%/PF PUMP 545 ML MEDSTERN SCH ×2 (12:25→12:30)
[2022-08-17] MEDS: ketorolac tromethamine 15mg/ml inj. IV SCH ×2 (14:31→21:35)
[2022-08-17 15:00] VITALS: BP 116/67
[2022-08-17 18:00] VITALS: BP 174/86
--- NOTE | 2022-08-17 18:37 | NUR ---
Patient in room PCU 3021. I have received report from Yennifer FLOWER and had the opportunity to ask questions and assume patient care.
[2022-08-17] MEDS: allopurinol 100mg tablet PO SCH (19:38)
[2022-08-17] MEDS: enoxaparin 30mg/0.3ml syringe SUBCUT SCH (19:42)
[2022-08-17] MEDS: atorvastatin 10mg tablet PO SCH (21:36)
[2022-08-17 22:00] VITALS: BP 135/65
--- NOTE | 2022-08-17 22:51 | NUR ---
Page Sent PAGER ID: [phone] MESSAGE: [phone] Sarahy Bazzi : Pt requesting medication to help her sleep. thank you Dorothea arreguin [phone]
[2022-08-17] MEDS ORDERED: Melatonin 3mg tablet PO PRN (23:10)
[2022-08-18 02:00] VITALS: BP 140/61
[2022-08-18] MEDS: ketorolac tromethamine 15mg/ml inj. IV SCH ×2 (03:04→08:23)
[2022-08-18] MEDS: HYDROcodone/acetaminophen 10/325mg tab PO PRN ×2 (03:04→09:58)
[2022-08-18 06:00] VITALS: BP 142/78
--- NOTE | 2022-08-18 06:23 | NUR ---
Problems reprioritized. Patient report given, questions answered & plan of care reviewed with Yennifer FLOWER.
[2022-08-18 07:12] LABS: BASOPHILS % (AUTO) 0.4 % (0-1); EOSINOPHILS # (AUTO) 0.5 X10'3 (0-0.9); EOSINOPHILS % (AUTO) 4.4 % (0-6); HEMATOCRIT 32.9 % (35.0-45.0); HEMOGLOBIN 11.3 g/dl (12.0-16.0); LYMPHOCYTES # (AUTO) 1.7 X10'3 (1.1-4.8); LYMPHOCYTES % (AUTO) 15.4 % (21-51); MEAN CORPUSCULAR HEMOGLOBIN 31.6 PG (27.0-31.0); MEAN CORPUSCULAR HGB CONC 34.4 g/dL (33.0-36.5); MEAN CORPUSCULAR VOLUME 92.1 FL (78-98); MEAN PLATELET VOLUME 8.9 FL (7.4-10.4); MONOCYTES # (AUTO) 1.2 X10'3 (0-0.9); MONOCYTES % (AUTO) 11.5 % (2-12); NEUTROPHILS # (AUTO) 7.4 X10'3 (1.8-7.7); NEUTROPHILS % (AUTO) 68.3 % (42-75); PLATELET COUNT 160 X10'3 (140-440); RED BLOOD COUNT 3.57 X10'6 (4.20-5.60); RED CELL DISTRIBUTION WIDTH 13.4 % (11.5-14.5); WHITE BLOOD COUNT 10.9 X10'3 (4.5-11.0)
[2022-08-18 07:25] LABS: ALBUMIN 2.7 G/DL (3.4-5.0); ANION GAP 7 (8-16); BLOOD UREA NITROGEN 7 MG/DL (7-18); BUN/CREATININE RATIO 11.1 (6.6-38.0); CALCIUM 7.4 MG/DL (8.5-10.1); CHLORIDE 94 MMOL/L (99-107); CREATININE 0.63 MG/DL (0.40-0.90); GLUCOSE 108 MG/DL (70-104); POTASSIUM 3.3 MMOL/L (3.5-5.1); SODIUM 127 MMOL/L (135-145); TOTAL CARBON DIOXIDE 25.7 MMOL/L (24-32); eGFR > 90 ML/MIN
[2022-08-18] MEDS: LACTOSE-REDUCED FOOD 237ML LIQUID PO SCH ×3 (08:00→18:24)
[2022-08-18] MEDS: estradiol 1mg tablet PO SCH (08:34)
[2022-08-18] MEDS: MELOXICAM 7.5 MG TABLET PO SCH (08:34)
[2022-08-18] MEDS: progesterone, micronized 100mg capsule PO SCH (08:35)
[2022-08-18] MEDS: aspirin 81mg, enteric-coated 1 TAB TABLET.DR PO SCH (08:35)
[2022-08-18] MEDS: folic acid/vitamin B complex w/vitamin C 0.8mg tablet PO SCH (08:35)
[2022-08-18] MEDS: carvedilol 6.25mg tablet PO SCH ×2 (08:35→20:10)
[2022-08-18] MEDS: magnesium Cl slow-release 64mg tablet PO SCH ×2 (08:35→20:10)
[2022-08-18] MEDS: pantoprazole 40mg Tablet.DR PO SCH (08:36)
[2022-08-18] MEDS: sennosides/docusate sodium tablet PO SCH ×2 (08:36→20:10)
[2022-08-18] MEDS: clopidogrel 75mg tablet PO SCH (08:36)
[2022-08-18] MEDS: allopurinol 100mg tablet PO SCH ×2 (08:37→20:10)
[2022-08-18] MEDS: furosemide 20MG tablet PO SCH ×2 (08:37→20:10)
[2022-08-18] MEDS: multivitamins, therapeutics tablet PO SCH (08:37)
[2022-08-18] MEDS: losartan 50mg tablet PO SCH (08:37)
[2022-08-18] MEDS: FERROUS SULFATE 142 MG TABLET.ER (45mg elemental) PO SCH ×2 (08:37→20:09)
[2022-08-18] MEDS: lactobacillus rhamnosus 10,000 MMU CELLS/CAPSULE PO SCH ×3 (08:43→18:23)
--- NOTE | 2022-08-18 09:19 | NUR ---
Initial: Pt admit for tricuspid regurgitation and CAD, currently POD #5 s/p CABG x 1. Overall PO intake of meals is poor, averaging 31% PO intake throughout LOS not meeting estimated nutrient needs. Pt to be receiving an Ensure Plus TID however per EMR it hasn't been available. D/w dietary to send ONS per rx. 100% PO intake of ONS TID will meet ~77% minimum estimated energy needs and ~92% minimum estimated protein needs. D/w dietary to send chocolate pudding WS since pt reports liking chocolate. LBM 08/17. Will continue to follow closely and monitor need for further nutrition intervention. Recommendations: 1) Liberalize to regular diet if meal PO intake does not improve 2) Ensure Plus HP TID 3) Chocolate pudding WS 4) Routine bowel care 5) Weekly scaled weights Addendum: 08/18/22 at [address] Amended: Links added.
[2022-08-18 11:00] VITALS: BP 161/84
[2022-08-18] MEDS: morphine 2 MG/ML inj. syringe IV PRN ×2 (11:08→21:31)
[2022-08-18] MEDS: [UNRECOGNIZED DRUG - OTHER] PO SCH ×2 (13:00→18:00)
[2022-08-18 15:00] VITALS: BP 134/73
[2022-08-18] MEDS: psyllium seed 3.4 gm packet PO SCH ×2 (15:10→20:09)
[2022-08-18] MEDS ORDERED: potassium Cl 20 mEq SR tablet PO SCH (17:30)
[2022-08-18 18:00] VITALS: BP 120/65
--- NOTE | 2022-08-18 18:20 | NUR ---
Patient in room PCU 3021. I have received report from Yennifer FLOWER and had the opportunity to ask questions and assume patient care.
[2022-08-18] MEDS: atorvastatin 10mg tablet PO SCH (20:10)
[2022-08-18] MEDS: enoxaparin 30mg/0.3ml syringe SUBCUT SCH (20:11)
--- NOTE | 2022-08-18 21:15 | NUR ---
Talking to patient she says she had a chest injury years ago and was asking if that would make her chest hurt more with having this surgery. She describes the pain as pressure and she has had it since the surgery it hasn't gotten better or worse. She takes the morphine and it helps somewhat. Also describes it as musculoskeletal pain. Addendum: 08/19/22 at 0701 by An Wiseman RN Amended: Links added.
[2022-08-18 22:00] VITALS: BP 137/72
[2022-08-19] MEDS: morphine 2 MG/ML inj. syringe IV PRN (00:35)
[2022-08-19 06:00] VITALS: BP 171/96
--- NOTE | 2022-08-19 06:05 | NUR ---
Problems reprioritized. Patient report given, questions answered & plan of care reviewed with Yennifer FLOWER.
--- NOTE | 2022-08-19 06:44 | NUR ---
Patient in room PCU 3021. I have received report from Nicole FLOWER and had the opportunity to ask questions and assume patient care.
--- NOTE | 2022-08-19 07:01 | NUR ---
Agree with Dorothea MUS[employer] assessment except where I documented my findings.
[2022-08-19] MEDS: LACTOSE-REDUCED FOOD 237ML LIQUID PO SCH (08:00)
[2022-08-19] MEDS ORDERED: losartan 50mg tablet PO SCH (08:00)
[2022-08-19] MEDS: [UNRECOGNIZED DRUG - OTHER] PO SCH (08:00)
[2022-08-19] MEDS: MELOXICAM 7.5 MG TABLET PO SCH (08:54)
[2022-08-19 08:55] VITALS: BP_SYST 171
[2022-08-19] MEDS: magnesium Cl slow-release 64mg tablet PO SCH (08:55)
[2022-08-19] MEDS: furosemide 20MG tablet PO SCH (08:55)
[2022-08-19] MEDS: multivitamins, therapeutics tablet PO SCH (08:55)
[2022-08-19] MEDS: lactobacillus rhamnosus 10,000 MMU CELLS/CAPSULE PO SCH (08:55)
[2022-08-19] MEDS: aspirin 81mg, enteric-coated 1 TAB TABLET.DR PO SCH (08:55)
[2022-08-19] MEDS: allopurinol 100mg tablet PO SCH (08:55)
[2022-08-19] MEDS: estradiol 1mg tablet PO SCH (08:55)
[2022-08-19] MEDS: folic acid/vitamin B complex w/vitamin C 0.8mg tablet PO SCH (08:55)
[2022-08-19] MEDS: progesterone, micronized 100mg capsule PO SCH (08:55)
[2022-08-19] MEDS: carvedilol 6.25mg tablet PO SCH (08:56)
[2022-08-19] MEDS: FERROUS SULFATE 142 MG TABLET.ER (45mg elemental) PO SCH (08:56)
[2022-08-19] MEDS: pantoprazole 40mg Tablet.DR PO SCH (08:56)
[2022-08-19] MEDS: HYDROcodone/acetaminophen 10/325mg tab PO PRN (08:56)
[2022-08-19 09:11] LABS: BLOOD UREA NITROGEN 9 MG/DL (7-18); BUN/CREATININE RATIO 11.8 (6.6-38.0); CALCIUM 7.9 MG/DL (8.5-10.1); CREATININE 0.76 MG/DL (0.40-0.90); GLUCOSE 115 MG/DL (70-104); TOTAL CARBON DIOXIDE 28.3 MMOL/L (24-32); eGFR 73 ML/MIN
[2022-08-19] MEDS: clopidogrel 75mg tablet PO SCH (09:38)
[2022-08-19 09:58] LABS: POTASSIUM 3.7 MMOL/L (3.5-5.1); SODIUM 130 MMOL/L (135-145)
[2022-08-19 10:11] LABS: ANION GAP 7 (8-16); CHLORIDE 95 MMOL/L (99-107)
[2022-08-19] MEDS ORDERED: ASPI-1071 PO (10:12)
[2022-08-19] MEDS ORDERED: HYDROcodone/acetaminophen 10/325mg tab PO ONE (11:50)
== END 2022-08-19 12:03 | disposition home or self-care (01) | DRG 220 ==
LOC: PAS IN 05:41 → CICU 2S 14:26 → PCU 3S 08-15 22:06
PROVIDERS: ADMIT Surgery; ATTEND Surgery
PROC: 02UJ0JZ Supplement Tricuspid Valve with Synthetic Substitute, Open Approach (ICD-10-PCS; 2022-08-13)
PROC: 5A1221Z Performance of Cardiac Output, Continuous (ICD-10-PCS; 2022-08-13)
PROC: B24BZZ4 Ultrasonography of Heart with Aorta, Transesophageal (ICD-10-PCS; 2022-08-13)
PROC: 02QJ0ZZ Repair Tricuspid Valve, Open Approach (ICD-10-PCS; 2022-08-13)
PROC: 02100Z9 Bypass Coronary Artery, One Artery from Left Internal Mammary, Open Approach (ICD-10-PCS; principal; 2022-08-13 07:56)
DX: I25.118 Atherosclerotic heart disease of native coronary artery with other forms of angina pectoris (principal); D62 Acute posthemorrhagic anemia; I16.9 Hypertensive crisis, unspecified; I36.1 Nonrheumatic tricuspid (valve) insufficiency; D69.6 Thrombocytopenia, unspecified; G89.18 Other acute postprocedural pain; E87.6 Hypokalemia; M85.80 Other specified disorders of bone density and structure, unspecified site; I10 Essential (primary) hypertension; I25.2 Old myocardial infarction
CPT/HCPCS: 36415; 36600; 71045; 71046; 80048; 80053; 81001; 82330; 82435; 82803; 82947; 82948; 83036; 83735; 84100; 84132; 84295; 85018; 85025; 85347; 85384; 85610; 85730; 86885; 86900; 86901; 86920; 87081; 93005; 93306; 93312; 93325; 93880; 93970; 94002; 94010; 94668; 94760; 97116; 97161; 97530; 97535; A4333; A4615; A4618; A5200; A6222; A6258; A6449; A7000; A7048; C1751; G0378; J0131; J0171; J0690; J1250; J1265; J1644; J1650; J1815; J1885; J1940; J2060; J2150; J2250; J2260; J2270; J2370; J2440; J2704; J2720; J2795; J2930; J3010; J3370; J3475; J3480; J3490; J7030; J7040; J7050; J7060; J7120; P9045; P9047; S0020

== ENCOUNTER 2023-11-09 02:56 | Emergency (ER) | payer MEDICARE, OTHER ==
[~2023-11-09] VITALS: Ht 152.4 cm; Wt 54.5 kg
[~2023-11-09 02:56] MED LIST changes: +ASPI-1071 PO; -BUPIVAcaine 0.5% inj/PF 30 ML ONE; +CARV6.253 PO; +CLOP75TA34 PO; +GABA100C PO; +HYDR-3972 PO; -Insulin Reg/NS 100units/100mL 100 ML IV SCH; -OLME20TA23 PO; +OLME20TA69 PO; -PROG100C28 PO; +PROG100C37 PO; -ceFAZolin 1000mg inj ONE; -clindamycin-Cleocin 900mg/D5W 50 ML IV ONE; -dextrose 50%-water 50ml dispensing syringe IV PRN; -epiNEPHrine 1 mg/ml inj ONE; -famotidine 20mg tablet PO ONE; -metoprolol tartrate 12.5mg (1/2 tablet) PO ONE; -mupirocin 2% nasal ointment 1gm UD NS ONE; -ringers solution, lacted 1,000 ML IV SCH; -vancomycin/NS 1 GM in NS 250 ML IV ONE
[2023-11-09 03:00] VITALS: TEMP 97.9
[2023-11-09] MEDS: ondansetron/PF 4mg/2ml inj IV ONE (03:40)
[2023-11-09 04:46] LABS: BASOPHILS # (AUTO) 0.1 X10'3 (0-0.2); BASOPHILS % (AUTO) 0.7 % (0-1); EOSINOPHILS # (AUTO) 0.3 X10'3 (0-0.9); EOSINOPHILS % (AUTO) 2.9 % (0-6); HEMATOCRIT 33.7 % (35.0-45.0); HEMOGLOBIN 11.5 g/dl (12.0-16.0); LYMPHOCYTES # (AUTO) 1.4 X10'3 (1.1-4.8); LYMPHOCYTES % (AUTO) 11.5 % (21-51); MEAN CORPUSCULAR HEMOGLOBIN 30.8 PG (27.0-31.0); MEAN CORPUSCULAR VOLUME 90.6 FL (78-98); MEAN PLATELET VOLUME 8.9 FL (7.4-10.4); MONOCYTES # (AUTO) 1.2 X10'3 (0-0.9); MONOCYTES % (AUTO) 10.4 % (2-12); NEUTROPHILS # (AUTO) 8.9 X10'3 (1.8-7.7); NEUTROPHILS % (AUTO) 74.5 % (42-75); PLATELET COUNT 228 X10'3 (140-440); RED BLOOD COUNT 3.72 X10'6 (4.20-5.60); RED CELL DISTRIBUTION WIDTH 12.7 % (11.5-14.5)
[2023-11-09 04:59] LABS: ALBUMIN 3.3 G/DL (3.4-5.0); ANION GAP 10 (8-16); BLOOD UREA NITROGEN 9 MG/DL (7-18); BUN/CREATININE RATIO 11.8 (10.0-20.0); CHLORIDE 93 MMOL/L (99-107); CREATININE 0.76 MG/DL (0.40-0.90); GLUCOSE 109 MG/DL (70-104); MAGNESIUM 1.9 MG/DL (1.5-2.4); POTASSIUM 3.5 MMOL/L (3.5-5.1); SODIUM 127 MMOL/L (135-145); TOTAL CARBON DIOXIDE 24.4 MMOL/L (24-32); eCRCL 42 ML/MIN; eGFR 73 ML/MIN
[2023-11-09 06:11] LABS: BILIRUBIN,URINE NEGATIVE (Neg); CLARITY,URINE CLEAR (Clear); COLOR,URINE YELLOW (Yellow); GLUCOSE, URINE NEGATIVE (Neg); KETONES,URINE NEGATIVE (Neg); LEUKOCYTE ESTERASE ,URINE NEGATIVE (Neg); NITRITES, URINE NEGATIVE (Neg); OCCULT BLOOD,URINE NEGATIVE (Neg); PROTEIN,URINE NEGATIVE (Neg); UROBILINOGEN,URINE 0.2 E.U/dL (0.2-1.0)
[2023-11-09 06:16] LABS: UA COLLECTION TYPE CLN CATCH MIDSTREAM
[2023-11-09] MEDS: normal saline 1000ml 1,000 ML IV STA (07:49)
[2023-11-09] MEDS ORDERED: azithromycin/NS 500mg/250ml 250 ML IV ONE (08:00)
[2023-11-09] MEDS ORDERED: CefTRIAXone/D5W-Rocephin 1gm 50 ML IV ONE (10:30)
[2023-11-09] MEDS ORDERED: dexamethasone 4mg/ml inj IV SCH (10:30)
[2023-11-09] MEDS ORDERED: PRED20TA PO (10:38)
[2023-11-09] MEDS ORDERED: ALBU8HFA INH (10:38)
[2023-11-09] MEDS ORDERED: AMOX-580 PO (10:38)
[2023-11-09] MEDS: predniSONE 20 mg tablet PO ONE (10:59)
[2023-11-09] MEDS: dexamethasone 4mg/ml inj IV ONE ×2 (11:03→11:05)
[2023-11-09] MEDS: azithromycin/NS 500mg/250ml 250 ML IV ONE (11:05)
[2023-11-09 11:39] VITALS: BP 131/67; PULSE 89; RESP 18; O2SAT 93
== END 2023-11-09 12:59 | disposition home or self-care (01) ==
LOC: ER 02:57
DX: B34.9 Viral infection, unspecified (principal); Z20.822 Contact with and (suspected) exposure to COVID-19; R05.9 Cough, unspecified; J98.01 Acute bronchospasm; E86.0 Dehydration; M79.10 Myalgia, unspecified site; R53.83 Other fatigue; Z88.5 Allergy status to narcotic agent; Z79.2 Long term (current) use of antibiotics; Z79.82 Long term (current) use of aspirin; Z79.899 Other long term (current) drug therapy
CPT/HCPCS: 36415; 71045; 80048; 81003; 83605; 83735; 84145; 85025; 87040; 87502; 87503; 87811; 93005; 96361; 96374; 96375; 99285; J1100; J2405; J7030; J7512